=== PATIENT | male | born 1975 | race Caucasian/White ===

== ENCOUNTER → 2021-07-02 | Outpatient (CLI) | payer OTHER ==
[~2021-07-02] MED LIST: CATAPRES0.2 MG PO; CELEXA20 MG PO; DEPAKOTE ER500 MG PO; FLONASE 0.05% N16 GM; HYDROCHLOROTHIA25 MG PO; IBU800 MG PO; NEURONTIN400 MG PO; NORVASC 5 MG TAB5 MG PO; PRILOSEC10 M1 PO; VALIUM 10 MG TA10 MG PO
== END ==
LOC: EXRD 11:02
DX: R06.02 Shortness of breath (principal); R91.8 Other nonspecific abnormal finding of lung field
CPT/HCPCS: 71046; 94060; 94729